=== PATIENT | female | born 1985 | race Native Hawaiian/Other Pacific Islander ===

== ENCOUNTER 2016-07-20 20:17 | Inpatient (IN) | payer OTHER ==
[2016-07-20 21:35] VITALS: BMI 26.6
--- NOTE | 2016-07-20 21:58 | OBHP ---
Datetime: 07/20/2016 21:45 IP Adm Impression: Term, intrauterine IP Admit Plan: Admit to unit; Initiate labor induction protocol Admit Comment, IP Provider: 31yo G1 EDC 07/25 by lmp prsents for induction 2ndary to sga. she denies srom, bleeding or decreased fm. +ctxs noted since presentation to [facility]. denies h/a, blurred va, sco tomata, ruq pain, n/v. pmhx: denies shx: denies etoh, drugs ortobacco nkda medic: pnv pshx: denies i: 39.2wk/sga p: induction for cervidel pt d/w dr haro Pelvic Type - PN: Adequate Extremities - PN: Normal Abdomen - PN: Normal Lungs - PN: Normal Heart - PN: Normal Neurologic - PN: Normal HEENT - PN: Normal General - PN: Normal Presentation-Admit: Vertex FHR - Baseline A Provider: 140 Membranes, Provider: Intact Contraction Comments Provider: 2-4 Comments, ACOG Physical Exam: O+/ri gbs neg EGA AdmitDate IP: 39.2 IP Chief Complaint: Scheduled induction of labor NICHD Variability Prov Fetus A: Moderate 6-25bpm FHR Category Provider Fetus A: Category I Dilatation, Provider: 0 Effacement, Provider: 20 Station, Provider: -2 Genitourinary Exam: Normal
[2016-07-20] MEDS ORDERED: Nalbuphine 20 mg/ml Inj (1 ml) IVP PRN (22:00)
[2016-07-20 23:00] LABS: BASO % 0.3 % (0.0-2.0); EOS # 0.2 K/uL (0.0-0.7); EOS % 1.4 % (0.0-4.0); HEMATOCRIT 34.5 % (34.0-47.0); LYMPH # 2.5 K/uL (1.0-4.3); LYMPH % 21.9 % (20.0-40.0); MEAN CELL VOLUME 90.7 fl (81.0-99.0); MEAN CORPUSCULAR HEMOGLOBIN 28.7 pg (27.0-31.0); MEAN CORPUSCULAR HGB CONC 31.7 g/dL (33.0-37.0); MEAN PLATELET VOLUME 11.6 fl (7.2-11.7); MONO # 1.1 K/uL (0.0-0.8); MONO % 9.8 % (0.0-10.0); NEUT # 7.6 K/uL (1.8-7.0); NEUT % 66.6 % (50.0-75.0); RED CELL DISTRIBUTION WIDTH 13.8 % (11.5-14.5); WHITE BLOOD COUNT 11.4 K/uL (4.8-10.8)
[2016-07-20] MEDS: Lactated Ringer's 1,000 ML IV SCH (23:00)
[2016-07-21 00:45] VITALS: BP 119/79; PULSE 82; RESP 18; TEMP 98.6; O2SAT 99
[2016-07-21] MEDS: Lactated Ringer's 1,000 ML IV SCH ×5 (13:25→22:51)
--- NOTE | 2016-07-21 13:31 | OBPN ---
Datetime: 07/21/2016 13:22 IP Informed Consent Obtain: Vaginal Delivery IP Procedures: Sterile Vag Exam IP Progress Plan: Continue present management Contraction Comments Provider: q 3 mins FHR - Baseline A Provider: 135 IP Progress Note Comment: Patient evaluated, feels some cramps, comfortable VE=1-2/50/-2 TVV=896 mod [place], +accels, no decels TOCO = ctxns q 3 mins A/P 1. Patient to continue with cytotec for induction 2. CEFM and TOCO 3. Re-evaluate as needed Vital Signs Provider: Reviewed; Within Normal Limits NICHD Accel Fetus A IP Provider: [id number] NICHD Variability Prov Fetus A: Moderate 6-25bpm Dilatation, Provider: 1-2 Effacement, Provider: 50 Station, Provider: -3 NICHD Decel Fetus A IP Provider: None Datetime: 07/20/2016 21:45 Membranes, Provider: Intact Presentation-Admit: Vertex FHR Category Provider Fetus A: Category I
[2016-07-21] MEDS ORDERED: Nalbuphine 20 mg/ml Inj (1 ml) IVP PRN (16:51)
--- NOTE | 2016-07-21 17:34 | OBPN ---
Datetime: 07/21/2016 17:23 IP Progress Impression: Normal progression of labor IP Informed Consent Obtain: Vaginal Delivery IP Procedures: Sterile Vag Exam IP Progress Plan: Continue present management Contraction Comments Provider: q 2 mins FHR - Baseline A Provider: 140 IP Progress Note Comment: Patient feeling increased cramps with contractions. VE=3/50/-2 BTQ=682 mod [place], +accels, TOCO = opal q 2 mins A/P 1. Patient asking for Nubain for pain control. Patient 3cm on exam, will continue to induce with c ytotec 2. Nubain for pain. 3. CEFM and TOCO Vital Signs Provider: Reviewed; Within Normal Limits NICHD Accel Fetus A IP Provider: [id number] NICHD Variability Prov Fetus A: Moderate 6-25bpm Dilatation, Provider: 3 Effacement, Provider: 50 Station, Provider: -3 NICHD Decel Fetus A IP Provider: None
[2016-07-21] MEDS ORDERED: Fentanyl/Bupivacaine HCl 250 ML EPI ONE (21:33)
[2016-07-22] MEDS ORDERED: Oxytocin 30 units/LR 500ML 30 U/500 ML BAG IV ONE (06:00)
--- NOTE | 2016-07-22 06:30 | OBPN ---
Datetime: 07/22/2016 06:26 IP Progress Impression: Normal progression of labor IP Informed Consent Obtain: Vaginal Delivery IP Procedures: Sterile Vag Exam IP Progress Plan: Continue present management Contraction Comments Provider: q 3 mins FHR - Baseline A Provider: 130 IP Progress Note Comment: Patient for evalaution, comfortable s/p epidural. VE=4/50/-2 OYY=146 mod [place], +accels, no decels TOCO= ctxning q 2 mins A/P 1. Patient progressing, will start pitocin for augmentation 2. CEFM and TOCO 3. Re=[place] as needed Vital Signs Provider: Within Normal Limits NICHD Accel Fetus A IP Provider: [id number] NICHD Variability Prov Fetus A: Moderate 6-25bpm Dilatation, Provider: 4 Effacement, Provider: 50 Station, Provider: -2 NICHD Decel Fetus A IP Provider: None
[2016-07-22] MEDS: Lactated Ringer's 1,000 ML IV SCH (06:47)
--- NOTE | 2016-07-22 10:21 | OBPN ---
Datetime: 07/22/2016 10:15 IP Progress Impression: Normal progression of labor IP Informed Consent Obtain: Vaginal Delivery IP Procedures: Sterile Vag Exam IP Progress Plan: Continue present management Membranes, Provider: Ruptured IP Progress Note Comment: Patient evaluated, comfortable VE=50/-3, AROM CVI=644 mod [place], no accels, no decels TOCO = ctxning q 2-6 mins A/P 1. Patient now AROM, 4cm, continue augmentation with Pitocin. Pitocin now at 3 2. CEFM and TOCO 3. Re-[place] as needed Vital Signs Provider: Reviewed; Within Normal Limits Dilatation, Provider: 4 Effacement, Provider: 50 Station, Provider: -3
--- NOTE | 2016-07-22 13:26 | OBPN ---
Datetime: 07/22/2016 12:55 IP Progress Impression: Normal progression of labor IP Informed Consent Obtain: Vaginal Delivery IP Procedures: Sterile Vag Exam IP Progress Plan: Continue present management Membranes, Provider: Ruptured Contraction Comments Provider: q 2 mins FHR - Baseline A Provider: 140 IP Progress Note Comment: Patient examined, comfortable VE=5/70/-1 AOI=540 mod [place], no accels, +early decels [place] = ctxning q 2 mins A/P 1. Patient progressing well, now 5cm, Pitocin @ 9mu/min 2. CEFM and TOCO 3. Re-evaluate as needed Vital Signs Provider: Reviewed; Within Normal Limits NICHD Variability Prov Fetus A: Moderate 6-25bpm Dilatation, Provider: 5 Effacement, Provider: 70 Station, Provider: -1 NICHD Decel Fetus A IP Provider: None
[2016-07-22] MEDS ORDERED: Lidocaine 1% Inj (20ml) ONE (15:19)
[2016-07-22] MEDS ORDERED: Oxytocin 30 units/LR 500ML 30 U/500 ML BAG IV SCH (18:43)
[2016-07-22] MEDS ORDERED: Oxycodone/Acetaminophen 5/325 mg Tab PO PRN ×4 (18:43→21:21)
[2016-07-22] MEDS ORDERED: Benzocaine/Menthol SPRAY TOP PRN (18:43)
--- NOTE | 2016-07-22 18:43 | OBDS ---
DELIVERY PERSONNEL Delivery Doctor: Yossi Markham MD Mine Shifter: Dana Lewis RN MATERNAL INFORMATION Delivery Anesthesia: Epidural Medications in Delivery: cervidil, cytotec, nubain, pitocin Estimated Blood Loss (ml): 300 Placenta Cultured: Yes Maternal Complications: None Provider Comments: of live male infant over intact perineum, JOEY presentation followed by shoul ders and rest of perineum, mouth and nose suctioned, cord clamped and cut, cord blood obtained, place nta delivered spontaneously, fundus firm, 2nd degree laceration repaired with 2-0 vicryl rapide and r ight labial laceration repaired with 3-0 rapide vicryl, KHU=[id number], vaginal packing placed, pt otherwi se tolerated procedure LABOR SUMMARY EDC: 07/25/2016 00:00 No. Babies in Womb: 0 Attempted: No Labor Anesthesia: Epidural LABOR INFORMATION Reason for Induction: Intrauterine Growth Retardation Cervical Ripening Agents: Cytotec @ (Annotations: 50 mcg as per md order ) Group B Beta Strep: Negative Steroids Given: None Reason Steroids Not Administered: Not Applicable MEMBRANES Membranes Rupture Method: Artificial Amniotic Fluid Color: Clear Amniotic Fluid Amount: Moderate Amniotic Fluid Odor: Normal STAGES OF LABOR Stage 3 hrs: 0 Stage 3 min: 3 BABY A INFORMATION Delivery Date/Time: 07/22/2016 17:56 Method of Delivery: Vaginal Born in Route : No : N/A Forceps: N/A Vacuum Extraction: N/A Shoulder Dystocia : No SHOULDER DYSTOCIA BABY A Delivery Date/Time: 07/22/2016 17:56 PRESENTATION/POSITION BABY A Presentation: Cephalic Cephalic Presentation: Vertex PLACENTA INFORMATION BABY A Placenta Delivery Time : 07/22/2016 17:59 Placenta Method of Delivery: Spontaneous Placenta Status: Delivered SCORES BABY A Heart Rate 1 min: >100 bpm Resp Effort 1 min: Slow, Irregular Reflex Irritability 1 min: Cough or Sneeze or Pulls Away Muscle Tone 1 min: Active Motion Color 1 min: Body [place], Extremities Blue Resuscitation Effort 1 min: Tactile Stimulation SCORE 1 MIN: 8 Heart Rate 5 min: >100 bpm Resp Effort 5 min: Good Cry Reflex Irritability 5 min: Cough or Sneeze or Pulls Away Muscle Tone 5 min: Active Motion Color 5 min: Body [place], Extremities Blue Resuscitation Effort 5 min: N/A SCORE 5 MIN: 9 INFORMATION BABY A Gestational Age at Delivery: 39.5 Gestational Status: Term Infant Outcome : Liveborn Infant Condition : Stable Infant Sex: Male CORD INFORMATION BABY A No. Cord Vessels: 3 Nuchal Cord : N/A Cord Blood Taken: Yes Infant Suction: Mouth
[2016-07-22] MEDS: Benzocaine/Menthol SPRAY TOP PRN (22:14)
[2016-07-23] MEDS: Benzocaine/Menthol SPRAY TOP PRN (05:44)
[2016-07-23 08:11] LABS: HEMATOCRIT 25.7 % (34.0-47.0); MEAN CELL VOLUME 90.3 fl (81.0-99.0); MEAN CORPUSCULAR HEMOGLOBIN 28.7 pg (27.0-31.0); MEAN CORPUSCULAR HGB CONC 31.8 g/dL (33.0-37.0); RED CELL DISTRIBUTION WIDTH 13.8 % (11.5-14.5); WHITE BLOOD COUNT 15.5 K/uL (4.8-10.8)
[2016-07-23] MEDS ORDERED: Multivitamin With Minerals Tab PO SCH (09:00)
[2016-07-23] MEDS: Multivitamin With Minerals Tab PO SCH (09:46)
--- NOTE | 2016-07-23 11:28 | OBPPN ---
Datetime: 07/23/2016 11:21 PP Pain Prov: Within normal limits PP Nausea Prov: Denies PP Flatus Prov: Yes PP Breasts Prov: Normal PP Heart Prov: Normal PP Lungs Prov: Normal PP Abdomen/Uterus Prov: Normal PP Lochia Prov: Normal PP Vulva/Perineum Prov: Normal PP CVA Tenderness Prov: Normal PP Extremities Prov: Normal PP Comments Phys Exam Prov: Fundus firm under umbilicus Vaginal packing removed PP Impression Prov: Normal progression PP Plan Prov: Continue present management PP Progress Note Prov: Patient denies CP, no SOB, no N/V, tolerating PO diet, ambulating/voiding wel l, mild lochia, abdominal pain tolerable with meds A/P 1. Patient doing well, continue orders 2. reg diet 3. Motrin/Percocet prn pain 4. Encourage ambulation and IP PP Procedures: None Vital Signs Provider PP: Reviewed; Within Normal Limits
--- NOTE | 2016-07-24 09:09 | OBPPN ---
Datetime: 07/24/2016 09:05 PP Pain Prov: Within normal limits PP Nausea Prov: Denies PP Flatus Prov: Yes PP Breasts Prov: Normal PP Heart Prov: Normal PP Lungs Prov: Normal PP Abdomen/Uterus Prov: Normal PP Lochia Prov: Normal PP Vulva/Perineum Prov: Normal PP CVA Tenderness Prov: Normal PP Extremities Prov: Normal PP Comments Phys Exam Prov: Fundus firm under umbilicus PP Impression Prov: Normal progression PP Plan Prov: Continue present management PP Progress Note Prov: Patient denies CP, no SOB, no N/V, tolerating PO diet, abdominal pain tolerab le with meds, mild lochia, A/P PPD #2 1. Discharge orders written 2. Patietn to be discharged home IP PP Procedures: None Vital Signs Provider PP: Reviewed; Within Normal Limits
--- NOTE | 2016-07-24 09:11 | OBDCSUM ---
Datetime: 07/24/2016 09:09 Discharged to, Provider: Home Follow up at, Provider: OB Disch Instr Activity: Normal activity Disch Instr Diet: Regular Discharge Instructions, Provider: Routine instructions given Discharge Diagnosis, Provider: Term Delivered Discharge Time: 07/24/2016 09:09 Follow up in weeks, Provider: 6 Disch Referrals: None Contraception discussed, Prov: Yes Discharge Comment, Provider: Return to hospital if bleeding, pain, temp Datetime: 07/21/2016 07:25 Discharged to, Provider: home Follow up at, Provider: OBGYN Disch Instr Activity: Normal activity Disch Instr Diet: Regular Follow up in weeks, Provider: 6 weeks Disch Activity Restrictions: No exercising
[2016-07-24] MEDS: Multivitamin With Minerals Tab PO SCH (09:52)
== END 2016-07-24 20:07 | disposition home or self-care (01) | DRG 775 ==
LOC: H.EROB2 20:17 → H.L&D 21:38 → H.OB/GYN 07-22 20:40
PROVIDERS: ADMIT Obstetrics & Gynecology; ATTEND Obstetrics & Gynecology
PROC: 4A1HXCZ Monitoring of Products of Conception, Cardiac Rate, External Approach (ICD-10-PCS; 2016-07-20)
PROC: 10E0XZZ Delivery of Products of Conception, External Approach (ICD-10-PCS; principal; 2016-07-22)
PROC: 0KQM0ZZ Repair Perineum Muscle, Open Approach (ICD-10-PCS; 2016-07-22)
PROC: 0UQMXZZ Repair Vulva, External Approach (ICD-10-PCS; 2016-07-22)
PROC: 10907ZC Drainage of Amniotic Fluid, Therapeutic from Products of Conception, Via Natural or Artificial Opening (ICD-10-PCS; 2016-07-22)
DX: O36.5930 Maternal care for other known or suspected poor fetal growth, third trimester, not applicable or unspecified (principal); O70.1 Second degree perineal laceration during delivery; Z37.0 Single live birth; Z3A.39 39 weeks gestation of pregnancy